=== PATIENT | male | born 1950 | race Hispanic/Latino ===

== ENCOUNTER 2017-08-06 06:51 | Day surgery (SDC) | payer OTHER ==
[2017-08-03 14:50] LABS: BASOPHILS % (AUTO) 0.7 % (0.0-5.0); EOSINOPHILS % (AUTO) 0.6 % (0.0-8.0); HEMATOCRIT 42.8 % (42-54); LYMPHOCYTES % (AUTO) 14.6 % (21.0-51.0); MEAN CORPUSCULAR HEMOGLOBIN 29.7 pg (27.0-33.0); MEAN CORPUSCULAR HGB CONC 33.5 g/dL (32.0-36.0); MEAN CORPUSCULAR VOLUME 88.8 fL (79-99); MONOCYTES % (AUTO) 5.9 % (3.0-13.0); NEUTROPHILS % (AUTO) 78.2 % (40.0-77.0); PLATELET COUNT (AUTO) 256 K/uL (130-400); RED BLOOD CELL COUNT(AUTO) 4.82 MIL/uL (4.50-6.20); RED CELL DISTRIBUTION WIDTH 13.9 % (11.0-15.5)
[2017-08-03 14:54] VITALS: BP 116/65
[2017-08-03 15:01] LABS: CREATININE 1.3 mg/dL (0.5-1.5); POTASSIUM 5.1 mmol/L (3.5-5.1)
[2017-08-03 15:04] LABS: INR 0.97 (0.85-1.15); PARTIAL THROMBOPLASTIN TIME 25.1 SEC (26.3-35.5); PROTHROMBIN TIME 10.2 SEC (9.6-11.6)
[~2017-08-06] VITALS: Ht 177.8 cm; Wt 82.7 kg
[2017-08-06] VITALS (11 sets, daily range): BP systolic 104–139; BP diastolic 56–75
[~2017-08-06 06:51] MED LIST: ASPI-555 PO; CANA300T PO; CHOL200016 PO; CLOT15CR5 TP; FOLI-74 PO; GABA-531 PO; GLIP1TAB6 PO; LISI-617 PO; OMEG-125 PO; SIMV5TAB6 PO
[2017-08-06] MEDS: CEFAZOLIN SODIUM 1 GM VIAL IVP SCH ×2 (08:30→10:45)
[2017-08-06] MEDS ORDERED: SODIUM CHLORIDE 0.9% 1000ML 1,000 ML IV ONE (08:34)
[2017-08-06] MEDS ORDERED: BUPIVACAINE/PF 0.25% 30ML VIAL IJ ONE (09:30)
[2017-08-06] MEDS ORDERED: BACITRACIN 28.4 GM OINT TP ONE (09:30)
[2017-08-06] MEDS ORDERED: PROPOFOL 10 MG/ML 20ML VIAL IV ONE (10:30)
[2017-08-06] MEDS ORDERED: FENTANYL CITRATE PF 50 MCG/1 ML 2ML VIAL ONE (10:30)
[2017-08-06] MEDS ORDERED: MIDAZOLAM HCL 1 MG/ML 2ML VIAL ONE (10:30)
[2017-08-06] MEDS ORDERED: LIDOCAINE PF 2% 5ML ABBOJECT ONE (11:10)
[2017-08-06] MEDS ORDERED: PHENYLEPHRINE HCL 10 MG/ML 1ML VIAL IV ONE (11:10)
[2017-08-06] MEDS ORDERED: SODIUM CHLORIDE 0.9% 10 ML VIAL ONE (11:10)
== END 2017-08-06 13:13 | disposition home or self-care (01) ==
LOC: DAH 06:51
PROVIDERS: ATTEND Urology
DX: N47.1 Phimosis (principal); E11.9 Type 2 diabetes mellitus without complications; I10 Essential (primary) hypertension; E78.00 Pure hypercholesterolemia, unspecified; Z79.899 Other long term (current) drug therapy
CPT/HCPCS: 36415; 54150; 80048; 82948 ×2; 85025; 85610; 85730; 93005; A4218; A4600; A4606; J0690; J2001; J2250; J2370; J2704; J3010; J3490; J7030 ×2

== ENCOUNTER → 2018-03-15 | Outpatient (CLI) | payer OTHER ==
[~2018-03-15] MED LIST changes: -CHOL200016 PO; +CHOL200059 PO
[2018-03-15] MEDS: REGADENOSON 0.4 MG/5 ML PF SYG IVP SCH ×2 (10:00→10:58)
== END | disposition home or self-care (01) ==
LOC: SHCH 07:47
PROVIDERS: ATTEND Internal Medicine Cardiovascular Disease
DX: R06.00 Dyspnea, unspecified (principal); Z72.89 Other problems related to lifestyle
CPT/HCPCS: 78452; 93017; 96374; A9500 ×2; J2785

== ENCOUNTER 2018-04-21 08:44 | Day surgery (SDC) | payer OTHER ==
[2018-04-19 16:44] VITALS: BP 126/65
[2018-04-19 16:47] LABS: BASOPHILS % (AUTO) 0.8 % (0.0-5.0); EOSINOPHILS % (AUTO) 1.7 % (0.0-8.0); HEMATOCRIT 45.6 % (42-54); LYMPHOCYTES % (AUTO) 22.4 % (21.0-51.0); MEAN CORPUSCULAR HGB CONC 33.6 g/dL (32.0-36.0); MEAN CORPUSCULAR VOLUME 89.3 fL (79-99); MONOCYTES % (AUTO) 8.1 % (3.0-13.0); PLATELET COUNT (AUTO) 244 K/uL (130-400); RED CELL DISTRIBUTION WIDTH 13.7 % (11.0-15.5); WHITE BLOOD COUNT (AUTO) 5.2 K/uL (4.8-10.8)
[2018-04-19 17:02] LABS: CREATININE 1.5 mg/dL (0.5-1.5); POTASSIUM 4.5 mmol/L (3.5-5.1)
[2018-04-19 17:04] LABS: INR 0.95 (0.85-1.15); PARTIAL THROMBOPLASTIN TIME 27.1 SEC (26.3-35.5)
[2018-04-19 17:18] LABS: BILIRUBIN,URINE Negative (NEGATIVE); COLOR,URINE Yellow (YELLOW); GLUCOSE, URINE (UA) >=1000 mg/dL (NEGATIVE); KETONES,URINE Trace mg/dL (NEGATIVE); LEUKOCYTE ESTERASE ,URINE Negative (NEGATIVE); NITRATE,URINE Negative (NEGATIVE); OCCULT BLOOD,URINE Negative (NEGATIVE); PH,URINE 5.5 (5.0-8.0); PROTEIN,URINE Negative (NEGATIVE); UROBILINOGEN,URINE 0.2 mg/dL (0.2-1.0)
[2018-04-19 17:20] LABS: APPEARANCE,URINE CLEAR (CLEAR)
[2018-04-19 17:47] LABS: BACTERIA,URINE Rare /HPF (None Seen); RBC,URINE 0-1 /HPF (0-1); SQUAMOUS EPITHELIAL CELL,UR Rare /HPF (0-2); WBC,URINE 0-1 /HPF (0-1)
[~2018-04-21] VITALS: Ht 177.8 cm; Wt 80.3 kg
[2018-04-21] VITALS (11 sets, daily range): BP systolic 100–131; BP diastolic 54–71
[~2018-04-21 08:44] MED LIST changes: +ATOR40TA71 PO; -CLOT15CR5 TP; -LISI-617 PO; -SIMV5TAB6 PO; +SODIUM CHLORIDE 0.9% 500ML 500 ML IV SCH
[2018-04-21] MEDS ORDERED: SODIUM CHLORIDE 0.9% 1000ML 1,000 ML IV ONE (10:27)
[2018-04-21] MEDS ORDERED: NITROGLYCERIN 5 MG/ML 10 ML VIAL IV ONE (13:41)
[2018-04-21] MEDS ORDERED: IOHEXOL-350 50ML VIAL IV ONE (13:41)
[2018-04-21] MEDS ORDERED: BIVALIRUDIN 250 MG/VIAL IV ONE (13:41)
[2018-04-21] MEDS ORDERED: IOHEXOL 350 MG/ML 100ML INFUS..BTL IV ONE (13:41)
[2018-04-21] MEDS ORDERED: LIDOCAINE HCL 2% 20ML ONE (13:41)
[2018-04-21] MEDS ORDERED: MORPHINE SULFATE 4 MG/1ML SYG ONE (14:25)
[2018-04-21] MEDS ORDERED: SODIUM CHLORIDE 0.9% 1000ML 1,000 ML IV SCH (14:44)
[2018-04-21] MEDS ORDERED: DEXTROSE 50%-WATER 50 ML DISP.SYRIN IV PRN (14:45)
[2018-04-21] MEDS ORDERED: GLUCAGON 1MG KIT 1 MG ML IM PRN (14:45)
[2018-04-21] MEDS ORDERED: INSULIN LISPRO 100 UNIT/ML 3ML SQ SCH ×8 (16:30→18:00)
[2018-04-21] MEDS ORDERED: INSULIN HUMULIN R 100 UNIT/ML 3ML SQ SCH ×8 (16:30→18:00)
== END 2018-04-21 19:05 | disposition home or self-care (01) ==
LOC: DAH 08:44
PROVIDERS: ATTEND Internal Medicine Cardiovascular Disease
DX: I25.118 Atherosclerotic heart disease of native coronary artery with other forms of angina pectoris (principal); R06.00 Dyspnea, unspecified; E11.40 Type 2 diabetes mellitus with diabetic neuropathy, unspecified; Z79.899 Other long term (current) drug therapy; E78.00 Pure hypercholesterolemia, unspecified; Z98.890 Other specified postprocedural states; R55 Syncope and collapse
CPT/HCPCS: 36415; 71045; 80048; 81001; 82948 ×2; 85025; 85610; 85730; 93005; 93458; A4606; C1760 ×2; C1894; J1644; J2270; J3490 ×2; J7030; Q9965; Q9967 ×2; J0583

== ENCOUNTER 2019-06-15 12:05 | Day surgery (SDC) | payer OTHER ==
[2019-06-14 16:08] VITALS: BP 93/69
--- NOTE | 2019-06-14 16:45 | NUR ---
CALLED DR MILLER AND INFORMED HIM THAT PATIENT'S ARRIVAL TIME IS 12:30 AND PATIENT IS ASKING IF HE CAN HAVE BREAKFAST IN THE MORNING BECAUSE HE IS DIABETIC. PER DR MILLER, PATIENT MAY HAVE A LIGHT BREAKFAST (OATMEAL AND CLEAR LIQUIDS) BUT NOTHING AFTER 8:00AM. INFORMED PATIENT OF DR MILLER' INSTRUCTIONS, PT VERBALIZED UNDERSTANDING.
[~2019-06-15] VITALS: Ht 176.5 cm; Wt 79.7 kg
[2019-06-15] VITALS (11 sets, daily range): BP systolic 114–152; BP diastolic 62–72
[2019-06-15] MEDS: CEFAZOLIN SODIUM 1 GM VIAL IVP ONE ×2 (08:00→17:00)
[~2019-06-15 12:05] MED LIST changes: -CANA300T PO; +EMPA25TA PO; -FOLI-74 PO; -GLIP1TAB6 PO; +INSU100V12 SQ; +METF-446 PO; -OMEG-125 PO; -SODIUM CHLORIDE 0.9% 500ML 500 ML IV SCH; +VITAMIN C PO
[2019-06-15] MEDS ORDERED: CEFAZOLIN SODIUM 1 GM VIAL ONE (12:44)
[2019-06-15] MEDS ORDERED: SODIUM CHLORIDE 0.9% 1000ML 1,000 ML IV ONE (12:45)
[2019-06-15] MEDS ORDERED: GLYCOPYRROLATE 1 MG/5 ML SYRINGE ONE ×2 (14:42→16:52)
[2019-06-15] MEDS ORDERED: EPINEPHRINE 1 MG/ML 30ML VIAL IJ ONE (15:56)
[2019-06-15] MEDS ORDERED: LIDOCAINE PF 2% 5ML ABBOJECT ONE (16:52)
[2019-06-15] MEDS ORDERED: DEXAMETHASONE SOD PHOSPHATE 10MG/ML 1ML VIAL ONE (16:52)
[2019-06-15] MEDS ORDERED: SUCCINYLCHOLINE 200MG/10ML SYR ONE (16:52)
[2019-06-15] MEDS ORDERED: PROPOFOL 10 MG/ML 20ML VIAL IV ONE (16:52)
[2019-06-15] MEDS ORDERED: NEOSTIGMINE 5MG/5ML SYR IV ONE (16:52)
[2019-06-15] MEDS ORDERED: ROCURONIUM 10MG/1ML SYR 10 MG/ML ML ONE (16:52)
[2019-06-15] MEDS ORDERED: FENTANYL CITRATE PF 50 MCG/1 ML 2ML VIAL ONE ×2 (16:53→19:27)
[2019-06-15] MEDS ORDERED: EPHEDRINE SULFATE 50 MG/ML AMPULE ONE (18:45)
[2019-06-15] MEDS ORDERED: HYDR-4457 PO (20:04)
[2019-06-15] MEDS ORDERED: CEPH500B PO (20:04)
[2019-06-15] MEDS ORDERED: NAPR-1192 PO (20:04)
--- NOTE | 2019-06-15 21:10 | NUR ---
PATIENT RECEIVED FROM PACU AWAKE AND ALERT. VOICES ALL NEEDS. NO COMPLAINTS OF PAIN VOICED AT THIS TIME. VITALS STABLE. AFEBRILE. DRESSING TO RIGHT SHOULDER DRY AND INTACT. SPOUSE AT BEDSIDE. ORIENTATED TO ROOM. HEAD TO TOE ASSESSMENT DONE. WILL CONTINUE TO BE OBSERVED. CALL LIGHT WITHIN REACH. WILL CONTINUE TO BE OBSERVED. Addendum: 06/16/19 at 0014 by KENDRICK DARDEN RN RN Amended: Links added.
[2019-06-15] MEDS ORDERED: ONDANSETRON HCL 4 MG/2 ML VIAL ONE (22:38)
--- NOTE | 2019-06-15 23:11 | NUR ---
PATIENT GIVEN DISCHARGE INSTRCUTIONS AND EDUCATION, INCLUDING SIDE EFFECTS ON NEW PRESCRIBED MEDICATIONS AND FOLLOW UP APPOINTMENT. PATIENT VERBALIZED UNDERSTANDING OF ALL EDUCATION VIA TEACH BACK. PATIENT HAS VOIDED. MEDICATED FOR NAUSEA. IV DISCONTINUED, CATHETER INTACT. NO SIGNS OF DISTRESS NOTED UPON DISCHARGE. PATIENT LEFT VIA WHEELCHAIR TO PRIVATE CAR WITH SPOUSE AT SIDE. ALL BELONGINGS TAKEN WITH. Addendum: 06/16/19 at 0016 by KENDRICK DARDEN RN RN Amended: Links added.
== END 2019-06-15 23:16 | disposition home or self-care (01) ==
LOC: DAH 12:05
PROVIDERS: ATTEND Orthopaedic Surgery
DX: M75.42 Impingement syndrome of left shoulder (principal); M25.612 Stiffness of left shoulder, not elsewhere classified; M75.102 Unspecified rotator cuff tear or rupture of left shoulder, not specified as traumatic; M25.512 Pain in left shoulder; M19.012 Primary osteoarthritis, left shoulder; I10 Essential (primary) hypertension; F32.9 Major depressive disorder, single episode, unspecified; E11.40 Type 2 diabetes mellitus with diabetic neuropathy, unspecified; E78.00 Pure hypercholesterolemia, unspecified; Z79.82 Long term (current) use of aspirin; Z79.899 Other long term (current) drug therapy; Z90.49 Acquired absence of other specified parts of digestive tract; Z98.890 Other specified postprocedural states; Z79.84 Long term (current) use of oral hypoglycemic drugs; Z87.891 Personal history of nicotine dependence; Z83.3 Family history of diabetes mellitus; Z82.3 Family history of stroke
CPT/HCPCS: 29824; 29826; 29827; 64415; 76942; 82948 ×3; A4215; A4221; A4222; A4223; A4565; A4649 ×4; A4663; A4930 ×2; A6204; G0168; J0171; J0330; J0690; J1100; J2001; J2405; J2704; J2710; J3010 ×2; J3490 ×3; J7030 ×2; J7120

== ENCOUNTER 2020-03-26 05:53 | Day surgery (SDC) | payer OTHER ==
[2020-03-19 10:07] LABS: BASOPHILS % (AUTO) 1.4 % (0.0-5.0); EOSINOPHILS % (AUTO) 2.8 % (0.0-8.0); HEMATOCRIT 44.3 % (42-54); LYMPHOCYTES % (AUTO) 18.4 % (21.0-51.0); MEAN CORPUSCULAR HEMOGLOBIN 27.3 pg (27.0-33.0); MEAN CORPUSCULAR HGB CONC 30.9 g/dL (32.0-36.0); MEAN CORPUSCULAR VOLUME 88.4 fL (79-99); MONOCYTES % (AUTO) 7.9 % (3.0-13.0); NEUTROPHILS % (AUTO) 69.3 % (40.0-77.0); PLATELET COUNT (AUTO) 226 K/uL (130-400); RED BLOOD CELL COUNT(AUTO) 5.01 MIL/uL (4.50-6.20); RED CELL DISTRIBUTION WIDTH 13.6 % (11.0-15.5); WHITE BLOOD COUNT (AUTO) 5.1 K/uL (4.8-10.8)
[2020-03-19 10:18] LABS: CREATININE 1.3 mg/dL (0.5-1.5)
[2020-03-23 10:14] VITALS: BP 128/64
[~2020-03-26] VITALS: Ht 175.3 cm; Wt 80.7 kg
[2020-03-26] VITALS (18 sets, daily range): BP systolic 104–126; BP diastolic 39–70
[~2020-03-26 05:53] MED LIST changes: -ASPI-555 PO; +ASPI-556 PO; +ATOR20TA65 PO; -ATOR40TA71 PO; -CHOL200059 PO; +CYAN50008 PO; +GLIP10TA9 PO; +MULT-1258 PO; +OMEGA 3 FISH OIL PO; +VITAMIN D3 PO
[2020-03-26] MEDS: CEFAZOLIN SODIUM 1 GM VIAL IVP SCH ×2 (06:00→08:21)
[2020-03-26] MEDS ORDERED: SODIUM CHLORIDE 0.9% 1000ML 1,000 ML IV ONE (06:37)
[2020-03-26] MEDS ORDERED: ONDANSETRON HCL 4 MG/2 ML VIAL ONE (07:33)
[2020-03-26] MEDS ORDERED: SUCCINYLCHOLINE CHLORIDE 20 MG/ML 10 ML VIAL ONE (07:33)
[2020-03-26] MEDS ORDERED: LIDOCAINE PF 2% 5ML ABBOJECT ONE (07:33)
[2020-03-26] MEDS ORDERED: FENTANYL CITRATE PF 50 MCG/1 ML 2ML VIAL ONE (07:33)
[2020-03-26] MEDS ORDERED: PROPOFOL 10 MG/ML 20ML VIAL IV ONE (07:33)
[2020-03-26] MEDS ORDERED: GLYCOPYRROLATE 1 MG/5 ML SYRINGE ONE (07:33)
[2020-03-26] MEDS ORDERED: DEXAMETHASONE SOD PHOSPHATE 10MG/ML 1ML VIAL ONE ×2 (07:33→09:52)
[2020-03-26] MEDS ORDERED: MIDAZOLAM HCL 1 MG/ML 2ML VIAL ONE (07:34)
[2020-03-26] MEDS ORDERED: ROCURONIUM 10MG/1ML SYR 10 MG/ML ML ONE (07:34)
[2020-03-26] MEDS ORDERED: NEOSTIGMINE 5MG/5ML SYR IV ONE (07:34)
[2020-03-26] MEDS ORDERED: MEPERIDINE-PF 25 MG/ML SYG ONE (07:38)
[2020-03-26] MEDS ORDERED: ROPIVACAINE 0.5% 5MG/ML 30ML IJ ONE (08:12)
[2020-03-26] MEDS ORDERED: EPHEDRINE SULFATE 50 MG/ML AMPULE ONE (08:22)
[2020-03-26] MEDS ORDERED: EPINEPHRINE 1 MG/ML 30ML VIAL IJ ONE (09:00)
[2020-03-26] MEDS ORDERED: KETOROLAC TROMETHAMINE 30MG/ML ONE (09:53)
[2020-03-26] MEDS ORDERED: HYDR-4060 PO (10:06)
[2020-03-26] MEDS ORDERED: CEPH500B PO (10:06)
== END 2020-03-26 12:31 | disposition home or self-care (01) ==
LOC: DAH 05:53
PROVIDERS: ATTEND Orthopaedic Surgery
DX: M75.112 Incomplete rotator cuff tear or rupture of left shoulder, not specified as traumatic (principal); Z20.828 Contact with and (suspected) exposure to other viral communicable diseases; M75.22 Bicipital tendinitis, left shoulder; M65.812 Other synovitis and tenosynovitis, left shoulder; M75.52 Bursitis of left shoulder; M77.8 Other enthesopathies, not elsewhere classified; E11.40 Type 2 diabetes mellitus with diabetic neuropathy, unspecified; E78.00 Pure hypercholesterolemia, unspecified; G89.29 Other chronic pain; Z90.89 Acquired absence of other organs; Z98.890 Other specified postprocedural states; Z79.899 Other long term (current) drug therapy; Z79.84 Long term (current) use of oral hypoglycemic drugs; Z90.49 Acquired absence of other specified parts of digestive tract
CPT/HCPCS: 29826; 29827; 36415; 64415; 76942; 80048; 82948 ×2; 85025; 93005; A4215; A4216; A4221; A4222; A4223 ×2; A4565; A4600; A4606; A4649 ×3; A4657; A4663; A4930; A6204; C9803; G0168; J0171; J0330; J0690; J1100 ×2; J1885; J2001; J2175; J2250; J2405; J2704; J2710; J2795; J3010; J3490 ×2; J7030 ×2; U0003

== ENCOUNTER 2024-03-31 09:25 | Observation (INO) | payer OTHER ==
[2024-03-25 11:22] LABS: APPEARANCE,URINE CLEAR (CLEAR); BILIRUBIN,URINE NEGATIVE (NEGATIVE); COLOR,URINE LIGHT-YELLOW (YELLOW); GLUCOSE, URINE (UA) >=1000 mg/dL (NEGATIVE); KETONES,URINE 10 mg/dL (NEGATIVE); LEUKOCYTE ESTERASE ,URINE NEGATIVE Leu/uL (NEGATIVE); NITRATE,URINE NEGATIVE (NEGATIVE); OCCULT BLOOD,URINE NEGATIVE (NEGATIVE); PH,URINE 5.5 (5.0-8.0); PROTEIN,URINE NEGATIVE (NEGATIVE); UROBILINOGEN,URINE 0.2 mg/dL (0.2-1.0)
[2024-03-25 11:28] LABS: ADD UA MICROSCOPIC YES
[2024-03-25 11:42] LABS: RBC,URINE 0-1 /HPF (0-1)
[2024-03-25 15:43] VITALS: BP 118/55; PULSE 80; RESP 18; TEMP 98.1
--- NOTE | 2024-03-25 18:58 | EKG ---
[facility] Test Date: 2024-03-25 Test Time: 11:16:18 Pat Name: COCO TRACY Department: [facility] Room: Gender: M Edi Consultant: [id number] : 1950 Requested By: MARION MILLER Order Number: [id number] Reading MD: Landon Brown Measurements Intervals [place] Rate: 76 P: 34 NC: 202 QRS: -11 QRSD: 83 T: 59 QT: 382 QTc: 431 Interpretive Statements Sinus rhythm Compared to ECG 03/19/2020 09:55:15 No significant changes Electronically Signed On 03-25-2024 19:11:06 CUBE CUTTER by Landon Brown Please click the below link to view image of tracing.
--- NOTE | 2024-03-30 16:42 | NUR ---
preop received call from tara with dr portillo that pt is asking if he can take glucose tabs as needed tomorrow morning d/t late surgery start. as per dr dale baez. tara notified and will inform pt.
[~2024-03-31] VITALS: Ht 175.3 cm; Wt 75.1 kg
[2024-03-31] VITALS (16 sets, daily range): BP systolic 98–130; BP diastolic 51–71; PULSE 71–99; RESP 16–19; TEMP 96.2–97.6; O2SAT 98
[~2024-03-31 09:25] MED LIST changes: -CYAN50008 PO; +DULO30CA52 PO; +GABA-1405 PO; -GABA-531 PO; -GLIP10TA9 PO; -INSU100V12 SQ; +INSU3INS3 SQ; -MULT-1258 PO; -OMEGA 3 FISH OIL PO; +SEMA2PEN SQ; -VITAMIN C PO; -VITAMIN D3 PO
[2024-03-31] MEDS: 0.9%NACL 1000ML 1,000 ML IV ONE (11:54)
[2024-03-31] MEDS: ceFAZolin SODIUM 2 GM VIAL ONE (11:54)
[2024-03-31] MEDS ORDERED: proPOFol 10 MG/ML 20ML VIAL IV ONE (16:12)
[2024-03-31] MEDS ORDERED: LIDOCAINE PF 100MG/5ML (2%) SYRINGE 5ML ONE (16:12)
[2024-03-31] MEDS ORDERED: rocuRONium bROMide 10MG/1ML 5ML VL ONE (16:12)
[2024-03-31] MEDS ORDERED: ROPivacaine 0.5% 5MG/ML 30ML ONE (16:14)
[2024-03-31] MEDS ORDERED: MIDAZOLAM HCL 1 MG/ML 2ML VIAL ONE (17:08)
[2024-03-31] MEDS ORDERED: ALBUMIN (HUMAN) 5% 250 ML IV ONE (17:37)
[2024-03-31] MEDS ORDERED: FENTanyl CITRate PF 50 MCG/1 ML 2ML VIAL ONE (18:15)
[2024-03-31] MEDS: ceFAZolin SODIUM 1 GM VIAL ONE (18:23)
[2024-03-31] MEDS ORDERED: ondanSETRON 4MG INJ ONE (18:34)
[2024-03-31] MEDS ORDERED: dexaMETHasone SOD PHOSPHATE 10MG/ML 1ML VIAL ONE (18:34)
[2024-03-31] MEDS ORDERED: phenylEPHRINE HCL 10 MG/ML 1ML VIAL IV ONE (18:42)
--- NOTE | 2024-03-31 21:21 | OP ---
Operative Note: DATE OF PROCEDURE: 03/31/24 SURGEON: MARION MILLER MD DISABILITIES CAREGIVER: [SAYDA KHALIL CSA] ANESTHESIA: [GENERAL ANESTHESIA PLUS REGIONAL BLOCK] ANESTHESIOLOGIST/DIRECTORY COMPILER: [NENITA QUILES CRNA] PREOPERATIVE DIAGNOSIS: [ROTATOR CUFF ARTHROPATHY RIGHT SHOULDER] POSTOPERATIVE DIAGNOSIS: [SAME] IMPLANTS: [ROSALINDA BIOMET SHOULDER. GLENOID BASE PLATE 25 MM. 6.5 MM CENTRAL SCREW AND FOUR PERIPHERAL LOCKING SCREWS 4.75 MM. GLENOSPHERE SIZE 36. HUMERAL STEM SIZE 11. STANDARD HUMERAL BASE PLATE. STANDARD HUMERAL POLY SIZE 36 MM] PROCEDURE: [RIGHT REVERSE TOTAL SHOULDER ARTHROPLASTY] ESTIMATED BLOOD LOSS: [THE CONSENT FORM] INDICATIONS: [THE PATIENT IS A 73-YEAR-OLD MALE WITH HISTORY OF SEVERE ARTHROSIS OF THE RIGHT SHOULDER THAT HAS BEEN TREATED IN THE PAST FOR ROTATOR CUFF TEARS. THE PATIENT IS BEING BROUGHT TO THE OPERATING ROOM FOR A REVERSE ARTHROPLASTY AFTER CONTINUE WITH PAIN RESTRICTION OF RANGE OF MOTION AND SIGNIFICANT INABILITY TO PERFORM HIS ACTIVITIES OF DAILY LIVING. PROCEDURE UNDERSTOOD, RISKS, BENEFITS AND POSSIBLE COMPLICATIONS AND AGREED TO SIGN THE CONSENT FORM ] DESCRIPTION OF PROCEDURE: [AFTER ADEQUATE GENERAL ANESTHESIA WAS ACHIEVED AND REGIONAL BLOCK OBTAINED THE PATIENT WAS PLACED IN THE BEACH CHAIR POSITION AND THE RIGHT UPPER EXTREMITY WAS PREPPED AND DRAPED IN THE USUAL MANNER. AFTER IDENTIFICATION OF THE BONY LANDMARKS AND INCISION WAS CARRIED DOWN IN THE ANTERIOR ASPECT OF THE SHOULDER FOLLOWING THE DELTOPECTORAL LINE THROUGH THE SKI N FOLLOWED BY DISSECTION OF THE SUBCUTANEOUS TISSUE. AFTER IDENTIFICATION OF THE CEPHALIC VEIN THE DELTOPECTORAL SPACE WAS DEVELOPED AND WE PROCEEDED TO DISSECT THE 2 MUSCLES AND RETRACT THEM TO ENTER INTO THE SPACE IDENTIFYING THE CLAVIPECTORAL FASCIA WHICH WAS INCISED JUST LATERAL TO THE SHORT HEAD OF THE BICEPS AND DIRECTED SUPERIORLY AND INFERIORLY. WITH THE ARM IN A SLIGHT A BDUCTION AND WITH A PRYOR RETRACTOR ELEVATING THE DELTOID MUSCLE WERE ABLE TO IDENTIFY THE SUBSCAPULARIS TENDON AND THE INSERTION OF THE PECTORALIS MUSCLE AT THE HUMERUS WELL THE CIRCUMFLEX VESSELS IN THE INFERIOR BORDER OF THE SUBSCAPULARIS. THE VESSELS WERE LIGATED WITH TWO #1 VICRYL STITCHES AT THE MOST LATERAL ASPECT OF THE SUBSCAPULARIS,. THE 1 CM SUPERIOR PORTION OF THE PECTORALIS TENDON INSERTION WAS CUT LEAVING A SMALL CUFF OF TENDON AND WE THEN PROCEEDED TO OPEN THE LONG HEAD OF THE BICEPS TENDON SHEATH PULLING THEN THE TENDON AND APPLYING TO #2 ETHIBOND SUTURES THROUGH IT AND THEN TYING IT TO THE PECTORALIS CUFF FOR A SOFT TISSUE TENODESIS. THE TENDON WAS THEN CUT PROXIMAL TO THIS TENODESIS AND WE FOLLOWED THE TENDON PROXIMALLY CUTTING THROUGH THE TENDON SHEATH ALL THE WAY TO THE BICIPITAL GROOVE REMOVING THEN THE TENDON AT THIS LEVEL. AT THIS POINT WE PROCEEDED THEN TO PEEL OF THE SUBSCAPULARIS TENDON OF THE LESSER TUBEROSITY WHILE AT THE SAME TIME EXTERNALLY ROTATING THE ARM EXPOSING THE HUMERAL HEAD AND PROCEEDED WITH THE DISSECTION ALL THE WAY TO THE POSTERIOR ASPECT OF THE HUMERAL HEAD USING THE BOVIE CAUTERY. A TAG SUTURE WITH #1 ETHIBOND STITCH WAS APPLIED TO THE SUPEROLATERAL CORNER OF THE SUBSCAPULARIS PREVIOUS TO THE DETACHMENT. AT THIS POINT THE HUMERAL HEAD WAS PRESENTED THROUGH THE WOUND BY EXTERNALLY ROTATING THE ARM FURTHER AND EXTENDING IT. WE THEN PROCEEDED TO MAKE A STARTING HOLE IN THE TOP OF THE HUMERAL HEAD ENTERING THE CANAL AND THEN WE PROCEEDED TO REAM OUT TO THE APPROPRIATE SIZE. THE HUMERAL HEAD WAS CUT WITHOUT THE AID OF THE GUIDE FOLLOWING THE EDGES OF THE ARTICULAR CARTILAGE WITH THE USE OF THE OSCILLATING SAW WE PROCEEDED TO REMOVE THE HUMERAL HEAD. WE THEN PROCEEDED TO USE THE RASPS FROM THE SMALLEST TO THE CHOSEN DIAMETER OBTAIN AN ADEQUATE FIT LEAVING THE LAST RASP IN PLACE. THEN RETRACTORS WERE APPLIED ANTERIORLY AND POSTERIORLY INFERIORLY TO THE GLENOID KEEPING THE ARM EXTERNALLY ROTATED AND AFTER THE GLENOID WAS EXPOSED WE PROCEEDED TO REMOVE THE REMNANTS OF THE LABRUM AND WE FOUND THE CENTER OF THE GLENOID AND MADE A DRILL HOLE WITH A GUIDEPIN WHICH STAY IN PLACE AND WITH THE USE OF THE C ARM WE VISUALIZED THE POSITION AND ONCE SATISFIED WITH THE PLACEMENT WE PROCEEDED THEN TO REPOSITION THE RETRACTORS, REMOVE THE GUIDEWIRE, MEASURED THE DEPTH OF THE DEFECT AND THEN WE PROCEEDED TO USE THE GLENOID REAMER TO EVEN THE SURFACE IN A CONCAVE SHAPE. AFTER IRRIGATION OF THE GLENOID WAS COMPLETED WE THEN PROCEEDED TO APPLY THE BASEPLATE WITH THE 6.5 MM DIAMETER BICORTICAL SCREW OBTAINING ADEQUATE FIXATION AND NEW X-RAYS WERE OBTAINED TO ASSURE THAT THERE WAS ADEQUATE CONTACT WITH THE GLENOID AND ONCE THIS WAS CORROBORATED WE THEN PROCEEDED TO REAPPLY THE RETRACTORS AND CONTINUE THE FIXATION OF THE BASEPLATE WITH 4 PERIPHERAL 4.75 MM LOCKING SCREWS. WE THEN PROCEEDED TO APPLY THE TRIAL GLENOSPHERE AND THEN THE TRIAL HUMERAL INSERT AND CUP AND THE SHOULDER WAS REDUCED. RANGE OF MOTION WAS TESTED AND X-RAYS WERE TAKEN ONCE SATISFIED WITH THE POSITION OF THE COMPONENTS AND THE RANGE OF MOTION WE PROCEEDED THEN TO REMOVE THE TRIAL COMPONENTS. THE JOINT WAS AGAIN IRRIGATED WITH ANTIBIOTIC SOLUTION AND WE THEN PLACED A FINAL GLENOSPHERE AND CHECK THE POSITION WITH THE C ARM. THEN WE PRESENTED THE PROXIMAL ASPECT OF THE HUMERUS AND AFTER IRRIGATING THE CANAL WE PROCEEDED THEN TO APPLY THE FINAL HUMERAL STEM FOLLOWED BY APPLICATION OF THE HUMERAL CUP AND INSERT. WE THEN REDUCED THE SHOULDER JOINT. BECAUSE OF THE SIGNIFICANT CONTRACTURE OF THE SUBSCAPULARIS I DECIDED NOT TO TRY TO REATTACH IT. AT THIS POINT WE CHECKED AGAIN THE RANGE OF MOTION, STABILITY AND FINAL X-RAYS WERE TAKEN. A DRAIN WAS PLACED THROUGH SEPARATE STAB INCISION AND WE PROCEEDED THEN TO CLOSE THE WOUND WITH REAPPROXIMATION OF THE DELTOPECTORAL INTERVAL WITH #1 VICRYL SIMPLE STITCHES FOLLOWED BY CLOSURE OF THE SUBCUTANEOUS TISSUE WITH 2-0 MONOCRYL INVERTED STITCHES AND THE SKIN WAS CLOSED WITH RUNNING STITCH WITH 3-0 MONOCRYL SUBCUTICULARLY.. DERMABOND WAS APPLIED TO COVER THE INCISION AND THEN TELFA DRESSING WAS APPLIED TO COVER IT AND OPSITE WAS THEN FINALLY APPLIED TO COVER THE TELFA DRESSING. THE DRAIN WAS CONNECTED TO THE RESERVOIR AND THE EXIT OF THE DRAIN WAS COVERED WITH A TELFA DRESSING AND AN OPSITE. THE DRAPES WERE THEN REMOVED, THE PATIENT WAS PLACED IN AN ARM SLING AND THEN PLACED IN THE SUPINE POSITION AND TRANSFERRED TO A HOSPITAL BED AND TAKEN TO RECOVERY ROOM FOR FOLLOW-UP BY ANESTHESIA. THERE WERE NO COMPLICATIONS DURING THE PROCEDURE.] MARION MILLER MD Mar 31, 2024 21:21
--- NOTE | 2024-03-31 21:26 | HMCIMG ---
PROCEDURE FILMS SHOULDER COMP 2+VWS RT CLINICAL INFORMATION: RT REVERSE TOTAL SHOULDER. 6 spot views of the right shoulder were performed for procedure documentation during right shoulder arthroplasty. FLUORO TIME: 20.3 seconds. IMPRESSION: Intraoperative films documenting procedure as above
[2024-03-31] MEDS ORDERED: CALCIUM CARB 500MG PO PRN (21:30)
[2024-03-31] MEDS ORDERED: PoTASSium chloRIDE 20MEQ/100ML 100 ML IV PRN (21:30)
[2024-03-31] MEDS: 0.9%NACL 1000ML 1,000 ML IV SCH (21:30)
[2024-03-31] MEDS ORDERED: PoTASSium chl 10% ELIXIR 20MEQ 20 MEQ/15 ML UDCUP PO PRN (21:30)
[2024-03-31] MEDS ORDERED: ketOROlac 15MG/ML VIAL (15MG/ML) IV PRN (21:30)
[2024-03-31] MEDS ORDERED: DiphenhydrAMINE HCL 50 MG/ML VIAL IVP PRN (21:30)
[2024-03-31] MEDS ORDERED: PoTASSium chloRIDE 20MEQ ER 20 MEQ ERTAB PO PRN (21:30)
[2024-03-31] MEDS ORDERED: FE FUMARATE/FA/MV, MIN COMB#15 1 TAB PO PRN (21:30)
[2024-03-31] MEDS ORDERED: ceFAZolin SODIUM 2 GM VIAL IVP SCH (22:00)
[2024-04-01] VITALS (10 sets, daily range): BP systolic 95–121; BP diastolic 47–68; PULSE 81–104; RESP 17–20; TEMP 98–98.8; O2SAT 95
[2024-04-01] MEDS: TEMAZepam 15 MG CAPSULE PO PRN (02:06)
[2024-04-01] MEDS: ceFAZolin SODIUM 2 GM VIAL IVP SCH (02:07)
[2024-04-01 05:40] LABS: HEMATOCRIT 36.1 % (42-54); MEAN CORPUSCULAR HEMOGLOBIN 29.5 pg (27.0-33.0); MEAN CORPUSCULAR HGB CONC 31.6 g/dL (32.0-36.0); MEAN CORPUSCULAR VOLUME 93.3 fL (79-99); RED BLOOD CELL COUNT(AUTO) 3.87 MIL/uL (4.50-6.20); RED CELL DISTRIBUTION WIDTH 13.5 % (11.0-15.5); WHITE BLOOD COUNT (AUTO) 12.2 K/uL (4.8-10.8)
[2024-04-01] MEDS: INSULIN humuLIN R 100 UNIT/ML 3ML SQ SCH (05:52)
[2024-04-01 06:13] LABS: CREATININE 1.2 mg/dL (0.5-1.3); POTASSIUM 4.6 mmol/L (3.5-5.1)
[2024-04-01] MEDS: polyETHYLene GLYCol 3350 17 GM POWD.PACK PO SCH (08:37)
[2024-04-01] MEDS: ASPIRIN 81 MG EC TAB PO SCH (08:38)
[2024-04-01] MEDS: doCUSate SODIUM 100 MG CAP PO SCH (08:40)
[2024-04-01] MEDS: HYDROcodone/APAP 5/325 1 TAB TABLET PO PRN (08:41)
[2024-04-01] MEDS: ondanSETRON 4MG INJ IVP PRN (11:17)
[2024-04-01] MEDS: ceFAZolin SODIUM 2 GM VIAL IVPB ONE (11:30)
[2024-04-01] MEDS: ketOROlac 15MG/ML VIAL (15MG/ML) IV PRN (11:31)
[2024-04-01] MEDS: FAMOTIDINE 20MG TAB PO ONE (12:20)
--- NOTE | 2024-04-01 12:32 | NUR ---
DCP CM DC [employer] MET WITH PT THIS MORNING. PATIENT IS INDEPENDENT PRIOR TO SURGERY, LIVES AT HOME WITH . DENIES ANY EQUIPMENT/SERVICES. FEELS SAFE TO GO BACK HOME, SPOUSE AND FAMILY ABLE TO ASSIST WITH TRANSPORTATION AND NEEDS NECESSARY, PT AGREEABLE FOR HOME W/[facility] ASSIGNED HOME HEALTH, CONSENT SIGNED MANNY. CM SENT ORDER, CLINICALS TO [facility] VIA SECURE FAX AND EMAIL, MADE AWARE DR MILLER REQUESTING [facility] HH IF POSSIBLE FOR PT/OT. PENDING REP RESPONSE. PT PENDING APPROVAL AND ASSIGN HOME HEALTH. PRIMARY NURSE MAYE AWARE. DR MILLER UPDATED. CM TO CONTINUE TO FOLLOW UP. Addendum: 04/01/24 at 1237 by SUSY PENA LVN CM Amended: Links added.
[2024-04-01] MEDS: metoCLOPRAmide 10 MG/2 ML VIAL IVP ONE (13:29)
--- NOTE | 2024-04-01 13:42 | PN ---
POD #1, S/P R shoulder reverse arthroplasty VSS, afebrile. Lab reviewed Drain output more than 300 mL Awake, alert and oriented. Hicups. Moderate pain. Dressing intact. NV intact. A: S/P right RTSA Plan: Explained findings related to surgery. Awaiting for approval. Will dismiss tomorrow if plans completed. Remove drain tomorrow. Reglan IV Vitals/Labs Vital Signs Date Time Temp Pulse Resp B/P (MAP) Pulse Ox O2 Delivery O2 Flow Rate FiO2 04/01/24 12:00 98.1 102 19 112/49 97 Room Air 0.0 04/01/24 08:15 21 Laboratory Tests 04/01/24 05:01 Medications Current Medications Cefazolin Sodium 2 gm STK-MED ONCE .ROUTE Last administered on 03/31/24at 18:01; Start 03/31/24 at 10:47; Stop 03/31/24 at 10:47; Status DC Sodium Chloride 1,000 ml @ As Directed STK-MED ONCE IV Last administered on 03/31/24at 11:54; Start 03/31/24 at 10:47; Stop 03/31/24 at 10:48; Status DC Cefazolin Sodium 1 gm STK-MED ONCE .ROUTE Last administered on 03/31/24at 18:23; Start 03/31/24 at 15:38; Stop 03/31/24 at 15:39; Status DC Lidocaine HCl 100 mg STK-MED ONCE .ROUTE; Start 03/31/24 at 16:12; Stop 03/31/24 at 16:12; Status DC Propofol 200 mg STK-MED ONCE IV; Start 03/31/24 at 16:12; Stop 03/31/24 at 16:13; Status DC Rocuronium [place] 50 mg STK-MED ONCE .ROUTE; Start 03/31/24 at 16:12; Stop 03/31/24 at 16:13; Status DC Ropivacaine 150 mg STK-MED ONCE .ROUTE; Start 03/31/24 at 16:14; Stop 03/31/24 at 16:15; Status DC Midazolam HCl 2 mg STK-MED ONCE .ROUTE; Start 03/31/24 at 17:08; Stop 03/31/24 at 17:14; Status DC Albumin Human 250 ml @ As Directed STK-MED ONCE IV; Start 03/31/24 at 17:37; Stop 03/31/24 at 17:37; Status DC Fentanyl Citrate 100 mcg STK-MED ONCE .ROUTE; Start 03/31/24 at 18:15; Stop 03/31/24 at 18:15; Status DC Dexamethasone Sodium Phosphate 10 mg STK-MED ONCE .ROUTE; Start 03/31/24 at 18:34; Stop 03/31/24 at 18:34; Status DC Ondansetron HCl 4 mg STK-MED ONCE .ROUTE; Start 03/31/24 at 18:34; Stop 03/31/24 at 18:34; Status DC Phenylephrine HCl 10 mg STK-MED ONCE IV; Start 03/31/24 at 18:42; Stop 03/31/24 at 18:43; Status DC Sodium Chloride 1,000 ml @ 100 mls/hr Q10H IV; Start 03/31/24 at 21:30; Stop 04/01/24 at 21:29 Polyethylene Glycol 17 gm DAILY PO Last administered on 04/01/24at 08:37; Start 04/01/24 at 09:00; Stop 05/01/24 at 08:59 Bisacodyl 10 mg DAILY PRN RC; Start 04/03/24 at 21:30; Stop 05/03/24 at 21:29 Ketorolac Tromethamine 15 mg Q6H PRN IV; Start 03/31/24 at 21:30; Stop 04/01/24 at 11:27; Status DC Multivitamins/Iron 1 tab DAILY PRN PO; Start 03/31/24 at 21:30; Stop 04/30/24 at 21:29 Temazepam 15 mg HS PRN PO Last administered on 04/01/24at 02:06; Start 03/31/24 at 21:30; Stop 04/30/24 at 21:29 Ondansetron HCl 4 mg Q6H PRN IVP Last administered on 04/01/24at 11:17; Start 03/31/24 at 21:30; Stop 04/30/24 at 21:29 Calcium Carbonate 500 mg Q12H PRN PO; Start 03/31/24 at 21:30; Stop 04/30/24 at 21:29 Diphenhydramine HCl 25 mg Q6H PRN IVP; Start 03/31/24 at 21:30; Stop 04/30/24 at 21:29 Insulin Human Regular INSULIN SLIDING SCAL... ACHS SQ Last administered on 04/01/24at 12:52; Start 04/01/24 at 07:30; Stop 05/01/24 at 07:29 Cefazolin Sodium 2 gm Q8H IVP; Start 03/31/24 at 22:00; Stop 03/31/24 at 22:46; Status DC Docusate Sodium 100 mg BID PO Last administered on 04/01/24at 08:40; Start 04/01/24 at 09:00; Stop 05/01/24 at 08:59 Potassium Chloride 100 ml @ 100 mls/hr AD PRN IV; Start 03/31/24 at 21:30; Stop 04/30/24 at 21:29 Potassium Chloride 20 meq AD PRN PO; Start 03/31/24 at 21:30; Stop 04/30/24 at 21:29 Potassium Chloride 20 meq AD PRN PO; Start 03/31/24 at 21:30; Stop 04/30/24 at 21:29 Acetaminophen/ Hydrocodone Bitart Q4H PRN PO Last administered on 04/01/24at 08:41; Start 03/31/24 at 21:30; Stop 04/05/24 at 21:29 Aspirin 81 mg BID PO Last administered on 04/01/24at 08:38; Start 04/01/24 at 09:00; Stop 05/01/24 at 08:59 Cefazolin Sodium 2 gm Q8H IVP Last administered on 04/01/24at 02:07; Start 04/01/24 at 02:00; Stop 04/01/24 at 10:01; Status DC Cefazolin Sodium 2 gm NOW ONCE IVPB Last administered on 04/01/24at 11:30; Start 04/01/24 at 11:30; Stop 04/01/24 at 11:31; Status DC Ketorolac Tromethamine 15 mg Q6H PRN IV Last administered on 04/01/24at 11:31; Start 04/01/24 at 11:30; Stop 04/06/24 at 11:29 Famotidine 20 mg ONCE ONCE PO Last administered on 04/01/24at 12:20; Start 04/01/24 at 12:30; Stop 04/01/24 at 12:31; Status DC Famotidine 20 mg BID PO; Start 04/01/24 at 21:00; Stop 05/01/24 at 20:59 Metoclopramide HCl 10 mg ONCE ONCE IVP Last administered on 04/01/24at 13:29; Start 04/01/24 at 13:30; Stop 04/01/24 at 13:31; Status DC MARION MILLER MD Apr 01, 2024 13:42
[2024-04-01] MEDS ORDERED: metoCLOPRAmide 10 MG/2 ML VIAL IVP PRN (17:00)
[2024-04-01] MEDS: metFORmin HCL 500 MG TABLET PO SCH (20:26)
[2024-04-01] MEDS: atorVAStatin 20 MG TABLET PO SCH (20:26)
[2024-04-01] MEDS: GABAPENTIN 300 MG CAPSULE PO SCH (20:26)
[2024-04-01] MEDS: FAMOTIDINE 20MG TAB PO SCH (20:26)
[2024-04-02] VITALS: BP 96/50; PULSE 94; RESP 19; TEMP 98.9
[2024-04-02 04:00] VITALS: BP 102/47; PULSE 88; RESP 19; TEMP 98.3
[2024-04-02 08:00] VITALS: BP 96/41; PULSE 90; RESP 17; TEMP 98.8
[2024-04-02] MEDS: duloXETine HCL 30 MG CAP PO SCH (09:07)
[2024-04-02] MEDS: EMPAGLIFLOZIN 25MG TABLET PO SCH (09:07)
[2024-04-02 09:15] VITALS: O2SAT 96
--- NOTE | 2024-04-02 09:15 | NUR ---
D/C HEMOVAC. HEMOVAC DRAIN TO RIGHT SHOULDER HAS BEEN REMOVED. TUBING INTACT. GAUZE AND TAPE APPLIED TO SITE. PATIENT TOLERATED WELL. PLAN OF CARE ONGOING.
[2024-04-02 09:16] VITALS: BP 125/59
--- NOTE | 2024-04-02 10:23 | NUR ---
CM NOTE: [facility] PENDING [facility]PROVAL AND ASSIGN CM CALLED [facility], OFFICE CLOSE. PT STILL PENDING APPROVAL AND ASSIGN . CM INFORMED DR MILLER, ASKED IF OKAY TO DC PT AND THIS CM WILL F/U W/[facility] FIST THING THURSDAY MORNING, AGREEABLE, ON HIS WAY TO SEE PT. DCP HOME. PRIMARY NURSE MAYE MADE AWARE. DCP HOME. CM TO CONTINUE TO FOLLOW UP. Addendum: 04/02/24 at 1031 by SUSY PENA LVN CM Amended: Links added.
--- NOTE | 2024-04-02 11:12 | DS ---
DISCHARGE SUMMARY [ DATE OF ADMISSION: 03/31/24 DATE OF DISCHARGE: 04/02/24 FINAL DIAGNOSIS: RIGHT SHOULDER OSTEOARTHRITIS, ROTATOR CUFF ARTHROPATHY SURGICAL PROCEDURES: RIGHT REVERSE TOTAL SHOULDER ARTHROPLASTY ON 03/31/24 SUMMARY OF HISTORY AND PHYSICAL: THE PATIENT IS A 73 YEAR-OLD MALE WITH HISTORY OF SEVERE ARTHROSIS TO THE RIGHT SHOULDER SECONDARY TO RECURRENT RCT AND ARTHRITIS THAT HAS BEEN PRESENT FOR SEVERAL YEARS AND HAS BEEN TREATED CONSERVATIVELY WITH NO LONGER ADEQUATE RESPONSE TO TREATMENT. HE HAS DEVELOPED SEVERE RESTRICTION ON ROM. THE PATIENT IS BEING ADMITTED FOR A RIGHT SHOULDER REVERSE ARTHROPLASTY. PREVIOUS MEDICAL HISTORY: DIABETES, HYPERCHOLESTEROLEMIA, PREVIOUS SURGICAL HISTORY: RIGHT SHOULDER ARTHROSCOPY X2, HERNIA REPAIR, APPENDECTOMY, EYE SURGERY, LEFT SHOULDER ARTHROSCOPY, FAMILY HISTORY: NEGATIVE SOCIAL HISTORY: NEGATIVE FOR USE OF TOBACCO OR ALCOHOL. ALLERGIES: NKDA. REVIEW OF SYSTEM: NEGATIVE ON ADMISSION HOSPITAL COURSE: THE PATIENT WAS ADMITTED AND TAKEN TO THE OPERATING ROOM FOR A RIGHT SHOULDER REVERSE ARTHROPLASTY, PROCEDURE THAT WENT UNEVENTFUL. POSTOPERATIVELY THE PATIENT REMAINED HEMODYNAMICALLY STABLE AND AFEBRILE. THE PATIENT RECEIVED ANTIBIOTIC AND ANTICOAGULATION PROPHYLAXIS PER PROTOCOL. THE PATIENT WAS EVALUATED BY PHYSICAL THERAPY AND STARTED REHABILITATION TREATMENT WITH GENTLE RANGE OF MOTION EXERCISES TO THE SHOULDER. THE PATIENT WAS ALSO EVALUATED BY CASE MANAGEMENT AND ARRANGEMENTS WERE MADE FOR DISCHARGE. THE PATIENT TOLERATED DIET WELL. ON POSTOP DAY #2 THE DRAIN WAS REMOVED. THE DRESSING WAS KEPT INTACT AND DRY AND THE PATIENT WAS DISMISSED. CONDITION ON DISCHARGE: GOOD DISPOSITION: THE PATIENT WILL BE DISMISSED HOME. CASE MANAGEMENT WE WILL CONTINUE ARRANGEMENTS WITH THE [place] FOR PATIENT TO BE TREATED AT HOME WITH HOME HEALTH. FOLLOW-UP WILL BE DONE AT THE OFFICE IN 3 WEEKS. THE PATIENT IS TO CONTINUE WITH THERAPY AND REHABILITATION AT HOME. CONTINUE TAKING PAIN MEDICATION INSTRUCTED WELL HOME MEDICATIONS INSTRUCTED AND CONTINUE WITH PRE ADMISSION DIET.] MARION MILLER MD ] MARION MILLER MD Apr 02, 2024 11:12
[2024-04-02] MEDS ORDERED: HYDR-4060 PO (11:15)
[2024-04-02 11:42] VITALS: BP 109/57; PULSE 95; RESP 18; TEMP 98.6
--- NOTE | 2024-04-02 13:10 | NUR ---
DISCHARGE PATIENT HAS BEEN DISCHARGED HOME. CASE MANAGEMENT IS TO FOLLOW UP WITH PT REGARDING HOME HEALTH. PATIENT VERBALIZES UNDERSTANDING OF DISCHARGE PAPERWORK. EDUCATED PATIENT ON DRESSING CHANGE AND TO CONTINUE PT EXERCISES, PATIENT VERBALIZES UNDERSTANDING. PATIENT IS TO FOLLOW UP WITH DR MILLER IN 3 WEEKS. PHONE NUMBER PROVIDED TO PATIENT AND . PAIN PRESCRIPTION SENT OVER TO PATIENT'S PREFERRED PHARMACY. PIV REMOVED. PRESSURE GAUZE AND TAPE APPLIED TO SITE. PATIENT STATED HE FEELS COMFORTABLE WALKING DOWN TO PRIVATE AUTOMOBILE. PATIENT ACCOMPANIED BY .
[2024-04-03] MEDS ORDERED: BisaCODYL 10 MG SUPP.RECT RC PRN (21:30)
--- NOTE | 2024-04-04 09:58 | NUR ---
CM Note: [facility] F/U CM spoke to [facility]/CT, state pending auth, aware Dr Hair requesting [facility] if possible for PT OT. Rep will call this CM patty once auth received today. Dr Hair updated. CM to continue to follow up.
--- NOTE | 2024-04-04 16:57 | NUR ---
CM NOTE: [facility] APPROVED CM RECEIVED CALL FROM [facility]/[place], PT HAS APPROVAL FOR [facility], PER REP PT INFORMED. CM REACHED OUT TO [place] [facility], MADE AWARE [place] APPROVED, INFORMED REP PT DC'D THURSDAY, TO COORDINATE W/PT FOR VISIT APPOINTMENT. DR MILLER UPDATED.
== END 2024-04-02 13:15 | disposition home or self-care (01) ==
LOC: DAH 09:25 → INTOOBSV 09:26 → DAHIP 09:26 → DAH 09:26 → 4AH 22:06
PROVIDERS: ADMIT Orthopaedic Surgery; ATTEND Orthopaedic Surgery
DX: M19.011 Primary osteoarthritis, right shoulder (principal); G89.29 Other chronic pain; M25.511 Pain in right shoulder; E11.9 Type 2 diabetes mellitus without complications; E78.00 Pure hypercholesterolemia, unspecified; Z79.899 Other long term (current) drug therapy
CPT/HCPCS: 81001; 93005; 64415; 23472; 82948 ×7; 88311; 88305; 73030; 96376; 96365; 96375; 80048; 85027; 36415; 97161; 97116 ×3; 97530 ×3; C1776 ×5; C1713 ×3; C1768; G0378 ×37; A4663; J7030 ×2; P9045; J3010; J0690 ×4; J1100; J3490; J2003; J2250; J2704; J2405 ×2; J2795; J2371; A6206; A4649 ×3; A5120; A4215 ×2; A4223 ×2; A4213; A4222; A4221; A4216; A4600; J2765 ×2; J1885; J1815 ×4